=== PATIENT | female | born 1980 | race Asian ===

== ENCOUNTER → 2018-10-26 | Outpatient (CLI) | payer MEDICAID | LOC: FIMAGING 13:23 | PROVIDERS: ATTEND Obstetrics & Gynecology | DX: O09.521 Supervision of elderly multigravida, first trimester (principal); O34.219 Maternal care for unspecified type scar from previous cesarean delivery; Z3A.13 13 weeks gestation of pregnancy ==

== ENCOUNTER → 2018-12-12 | Outpatient (CLI) | payer MEDICAID | LOC: FIMAGING 07:15 | PROVIDERS: ATTEND Obstetrics & Gynecology | DX: O09.523 Supervision of elderly multigravida, third trimester (principal); O34.219 Maternal care for unspecified type scar from previous cesarean delivery; Z3A.20 20 weeks gestation of pregnancy ==

== ENCOUNTER 2019-01-24 17:29 | Emergency (ER) | payer MEDICAID ==
--- NOTE | 2019-01-24 18:56 | EDPHY ---
General Time Seen by Provider: 01/24/19 18:07 Narrative: CLINICAL IMPRESSION: Avulsion laceration, distal lateral aspect of left 2nd finger. ASSESSMENT/PLAN: Very pleasant 38-year-old female presents to the emergency department with an avulsion laceration to the distal medial tip of the left 2nd finger sustained on a kitchen knife. Distal 2 point discrimination and neurovascular exam intact. Tetanus up-to-date. Digital block placed and wound was thoroughly cleaned. Due to persistent bleeding, Surgicel and a pressure dressing were applied. Home care discussed, PCP follow-up recommended, warning signs return to ED sooner alignment discharge. DIFFERENTIAL DIAGNOSIS: includes but not limited to laceration of tendon or vascular structure, underlying fracture, laceration with retained FB ED PROCEDURES: Laceration Repair Verbal consent obtained by patient. Risks discussed, including but not limited to infection, pain, retained foreign body, need for additional repair, poor cosmetic result, tendon damage, nerve damage, poor wound healing, vascular damage. Alternatives to repair discussed. Franklin protocol used to establish correct patient, procedure, equipment, bioinformatics support specialist, and site. Anesthesia obtained by nerve block at left 2nd DIP joint. Anesthetized with 0.5% bupivacaine without epinephrine. Laceration location left 2nd finger, length 0.5 cm, depth consistent with avulsion laceration, Repair type simple. Patient was prepped and draped in usual sterile fashion. Hemostasis achieved with direct pressure. Wound explored through full range of motion and entire depth of wound probed and visualized with gloved finger. No suspicion for nerve damage, tendon damage, underlying fracture, vascular damage, foreign body, or contamination. Area was cleansed with Shur-Clens and irrigated with sterile saline as per protocol. No foreign body or material removed. Repair method Surgicel and pressure dressing. Patient tolerated well with no immediate complications. Wound care: Clean and dry x 24 hours, gently clean with soap and water, cover with topical antibiotic ointment/bandage. CHIEF COMPLAINT: Laceration HPI: Pleasant left-hand dominant 38-year-old female presents to the emergency department with an avulsion laceration to the distal tip of the left 2nd finger sustained on a kitchen knife. Patient states she had come to the ED because bleeding persisted. She is currently 26 weeks with her 3rd child. Tetanus is up-to-date. No reports of numbness to the finger. No other injuries. PAST MEDICAL HISTORY: Currently , 26 weeks Pertinent Past Surgical History: None reported Social History: Otherwise healthy, left-hand dominant REVIEW OF SYSTEMS: All other systems negative Constitutional: No fever, no chills Musculoskeletal: No deformity, no joint pain Skin: Laceration left 2nd finger Neurological: [No sensory loss or weakness PHYSICAL EXAM: General Appearance: Alert, oriented, appropriate for age, cooperative, , NAD, well hydrated, non-toxic appearing, VSS, no hypoxia. Neurological: Alert and oriented x 3 Skin: Avulsion laceration to the medial distal aspect of the left 2nd finger. No nail bed involvement. No foreign body. No deep structure injury. Musculoskeletal: Distal 2 point discrimination and neurovascular exam intact. MEDICAL DECISION MAKING: Patient was seen independently. Secondary supervising physician at time of evaluation was Dr. Masrh . Diagnosis: Avulsion laceration left 2nd finger. New, requires workup Summary: See assessment and plan for summary of ED visit Patient Progress improved, stable for discharge. - History Smoking Status: Never smoked - Objective Vital Signs: Initial Vital Signs Temperature (C) 37.1 C 01/24/19 17:51 Heart Rate 88 01/24/19 17:51 Respiratory Rate 16 01/24/19 17:51 Blood Pressure 108/81 H 01/24/19 17:51 O2 Sat (%) 98 01/24/19 17:51 O2 Delivery Mode Room Air Allergies/Adverse Reactions: No Known Allergies Allergy (Unverified 01/24/19 17:51) Home Medications: Medication Instructions Recorded NK [No Known Home Meds] 01/24/19 Departure - Departure Disposition: Home, Routine, Self-Care Clinical Impression: Finger laceration Qualifiers: Encounter type: initial encounter Finger: index finger Damage to nail status: without damage Foreign body presence: without foreign body Laterality: left Qualified Code(s): S61.211A - Laceration without foreign body of left index finger without damage to nail, initial encounter Condition: Good Instructions: Finger Laceration (ED) Additional Instructions: DISCHARGE INSTRUCTIONS FROM YOUR DOCTOR Thank you for visiting our emergency department today. You were treated by a physician residential real estate assistant today and your case was reviewed with our ED Attending physician. Please keep in mind that discharge from the emergency department does not mean that there is nothing wrong - it simply means that we have not identified an emergency condition that requires further evaluation or treatment in the hospital. You should always plan to follow up with primary care for re- evaluation of your condition in the next 2-3 days. If you have been referred to a specialist, please call as soon as possible (today or tomorrow) to schedule your follow up appointment at the appropriate time. KEEP THE DRESSING ON HER FINGER FOR 24 HR. CHANGE THE BAND-AID TOMORROW NIGHT. ELEVATE THE HAND. RETURN TO THE EMERGENCY DEPARTMENT FOR PERSISTENT BLEEDING, REDNESS, SWELLING, DISCHARGE OR CONCERNS OF INFECTION OR ANY OTHER CONCERN. People present with illnesses and injuries in different ways, and it is always possible that we have missed something. You may always return for re-evaluation if symptoms worsen or if they are not improving or if you develop new/different symptoms. Again, thank you for choosing our emergency department. We hope that you feel better. Referrals: NONE *PRIMARY CARE P,. [Primary Care Provider] - As per Instructions Mendoza Jain MD [Medical Doctor] - 2-3 days, if not improved
[2019-01-24 19:07] VITALS: BP 123/90
== END 2019-01-24 19:07 | disposition home or self-care (01) ==
PROC: 0HQGXZZ Repair Left Hand Skin, External Approach (ICD-10-PCS; principal; 2019-01-24)
DX: S61.211A Laceration without foreign body of left index finger without damage to nail, initial encounter (principal); W26.0XXA Contact with knife, initial encounter

== ENCOUNTER 2019-02-22 08:36 | Inpatient (IN) | payer MEDICAID ==
[2019-02-22] MEDS ORDERED: IBUPROFEN 600 MG TAB PO PRN (09:05)
[2019-02-22] MEDS ORDERED: LIDOCAINE 1% 300 MG/30 ML SDV SC PRN (09:05)
[2019-02-22] MEDS ORDERED: OLIVE OIL 118 ML BTL MISC PRN (09:05)
[2019-02-22] MEDS ORDERED: LR 1,000 ML IV PRN (09:05)
[2019-02-22] MEDS ORDERED: EPSOM SALT 454 GM TP PRN (09:05)
[2019-02-22] MEDS ORDERED: MISOPROSTOL 200 MCG TAB PR PRN (09:05)
[2019-02-22] MEDS ORDERED: OXYTOCIN/RINGERS LACTATE 1,000 ML IV PRN (09:05)
[2019-02-22] MEDS ORDERED: BETAMETHASONE IM SYRINGE IM ONE ×2 (09:08→09:30)
[2019-02-22] MEDS ORDERED: MAGNESIUM SULF 4 GM/WATER 100 ML IV ONE (09:19)
[2019-02-22] MEDS ORDERED: CALCIUM GLUC 10% 1 GM/10 ML VIAL IVP PRN (09:19)
[2019-02-22 09:25] LABS: PLATELET COUNT 205 10^3/uL (150-400)
[2019-02-22] MEDS ORDERED: Mag Sulf 500 ML IV SCH (09:30)
[2019-02-22] MEDS ORDERED: ACETAMINOPHEN 500 MG TAB PO ONE (11:13)
--- NOTE | 2019-02-22 11:40 | GHP ---
[f rep st] PREOP HISTORY AND PHYSICAL DATE OF ADMISSION: 02/22/2019 ADMISSION DIAGNOSES: 1. Intrauterine at 30 and 3/7 weeks gestation. 2. Thirty and 3/7 weeks gestation. 3. History of section x2. labor. HISTORY OF PRESENT ILLNESS: The patient is a 38-year-old 3, para 2-0-0-2 who is 30 and 3/7 w eeks gestation presented to Labor and Delivery with complaint of vaginal bleeding and cramping. The patient's estimated date of confinement is 04/30/2019, dated by last menstrual period of 07/24/2018, consistent with a 12 week ultrasound. Patient initiated care at [facility] at 12 weeks gestation and has had regular care. This is an unplanned and patient kisha carnesy had some anxiety around the . She had her 1st trimester ultrasound and anatomy ultrasou nd with high-risk doctors, which were reassuring. Patient began having cramping and bleeding this mo rning at 1 o'clock in the morning. She arrived to labor and delivery this morning with complaint of vaginal bleeding. The status was reassuring. A bedside ultrasound was performed which showed a large amount of fluid in the lower uterine segment versus vagina and baby in a transverse and varia ble presentation. A speculum exam was performed in her cervix. There was a small amount of blood wi thin the vagina but no active bleeding. Her cervix appeared to be closed. A gentle digital exam was performed which showed the cervix to be fingertip and approximately 90-100 percent effaced. Transva ginal ultrasound was performed which showed a cervical length of 0.65 cm. The patient is overall com fortable and feeling good movement. She denies any loss of fluid. The patient was given betamethaso ne and started on magnesium sulfate for neuro protection and I used an stna for the exam and c onversation and the nurse practitioner came and talked with the patient about management of baby. MEDICAL HISTORY: The patient's medical history is significant for anxiety and some depres lori. MEDICATIONS: vitamins and iron. SURGICAL HISTORY: section x2. ALLERGIES: No known drug allergies. SOCIAL HISTORY: Patient is . 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 She denies tobacco, alcohol, or drug use. FAMILY MEDICAL HISTORY: Noncontributory. 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 Periods every 28 days, lasting 5 days. She is a 3, para 2 -0-0-2. In 2010, she had a primary low transverse section for not enough strength for a vag inal delivery in [facility]. Baby was 2.9 kg at 37 weeks gestation. In 2016, she had a repeat cesarea n section at 37 weeks gestation of a 2.9 kg male infant. Current has been unremarkable wit h the exception of this most recent labor. The patient denies any history of any abnormal Pa p smears or sexually transmitted diseases. REVIEW OF SYSTEMS: 10-point review of systems is negative with the exception of the above-mentioned positives. She denies any headache or changes in vision. She is having intermittent contractions an d a small amount of vaginal bleeding. She denies any loss of fluid. There is good movement. PHYSICAL EXAMINATION: VITAL SIGNS: Stable. GENERAL APPEARANCE: Alert and oriented x3. MUSCULOSKE LETAL: Grossly intact. NEURO: Grossly intact. PSYCH: Appropriate affect. HEART: Regular. LUNG S: Clear to auscultation bilaterally. ABDOMEN: Gravid, nondistended, nontender. EXTREMITIES: Rev eal no calf tenderness or edema. PELVIC: Cervical exam was fingertip and 90% effaced. is in a variable presentation, but not cephalic. There is adequate amniotic fluid. She is having occasio nal contractions. status is appropriate for gestational age. LABS: Blood type A positive, antibody screen negative. Rubella immune. GBS is pending. H BsAg negative. HIV negative. Her 50 g glucose was 126. ASSESSMENT AND PLAN: A 38-year-old 3, para 2-0-0-2, who is 30 and 3/7 weeks gestation here w ith contractions and vaginal bleeding. status remains reassuring. She has been given betamethasone and started on magnesium sulfate. We will proceed with section if statu s becomes reassuring, if there is spontaneous rupture of membranes or vaginal bleeding increases sign ificantly or if patient progresses into labor. /[id number]/MODL
--- NOTE | 2019-02-22 14:15 | OBPROG ---
Labor Progress Note Assessment/Plan: Assessment: Plan: Subjective/Intrapartum Course: 02/22/19 14:13 patient resting comfortably on magnesium. Magnesium is making her tired. no further bleeding. no loss of fluid. status reassuring. beside ultrasound - still variable presentation. reviewed case with MFM (Dr Fountain) . discussed nifedipine or indocin for 48 hours after magnesium to extend time after betamethasone. if not delivered by tuesday will have a growth ultrasound. with patient. will place mcduffie. questions answered. Objective: 02/22/19 09:15 Patient ABO/Rh A POSITIVE 02/22/19 09:15 - Contraction Pattern Assessment Current Contraction Pattern: Irregular - FHR Assessment Beatty FHR Pattern Variability: Moderate FHR Category: 1 Oxytocin Orders Assessment - Pre-Induction/Augmentation Assessment Gestational Age: 30 week(s) and 3 day(s)
[2019-02-22] MEDS ORDERED: INDOMETHACIN 25 MG CAP PO ONE ×2 (14:18→15:46)
[2019-02-22] MEDS ORDERED: ceFAZolin 2 GM/DEXTROSE 100 ML IV ONE (16:13)
[2019-02-22] MEDS ORDERED: BUPIVACAINE/DEXTROSE 7.5MG/ML 2 ML SPINAL AMP SP ONE (16:21)
[2019-02-22] MEDS ORDERED: morphINE PF 5 MG/10 ML INJ ONE (16:24)
--- NOTE | 2019-02-22 16:32 | PDANEPAE ---
ANE History of Present Illness 30 weeks in labor prior X 2 for repeat ANE Past Medical History - Cardiovascular History Hx Hypertension: No Hx Arrhythmias: No - Pulmonary History Hx Asthma/Reactive Airway Disease: No Hx Oxygen in Use at Home: No Hx Sleep Apnea: No Sleep Apnea Screening Result - Last Documented: Negative - Endocrine History Hx Diabetes: No ANE Review of Systems Review of Systems: ANE Patient History - Allergies Allergies/Adverse Reactions: No Known Allergies Allergy (Unverified 01/24/19 17:51) - Home Medications Home medications: home medication list seen and reviewed Home Medications: NK [No Known Home Meds] 01/24/19 [Last Taken Unknown] - NPO status NPO Since - Liquids (Date): 02/22/19 NPO Since - Liquids (Time): 07:00 NPO Since - Solids (Date): 02/21/19 NPO Since - Solids (Time): 09:00 - Anes Hx Anes Hx: no prior problems (prior spinal and GA without diff) - Smoking Hx Smoking Status: Never smoked ANE Labs/Vital Signs - Labs Result Diagrams: 02/22/19 09:15 - Vital Signs Blood Pressure: 110/68 Heart Rate: 90 Respiratory Rate: 14 Height: 154.94 cm Weight: 62.596 kg ANE Physical Exam - Airway Mallampati Score: Class 2 Mouth exam: normal dental/mouth exam - Pulmonary Pulmonary: no respiratory distress - Cardiovascular Cardiovascular: regular rate and rhythym - ASA Status ASA Status: II, E ANE Anesthesia Plan Anesthesia Plan: spinal
--- NOTE | 2019-02-22 16:35 | OBPROG ---
Labor Progress Note Assessment/Plan: Assessment: Plan: Subjective/Intrapartum Course: 02/22/19 14:13 patient resting comfortably on magnesium. Magnesium is making her tired. no further bleeding. no loss of fluid. status reassuring. beside ultrasound - still variable presentation. reviewed case with MFM (Dr Fountain) . discussed nifedipine or indocin for 48 hours after magnesium to extend time after betamethasone. if not delivered by tuesday will have a growth ultrasound. with patient. will place mcduffie. questions answered. 02/22/19 16:32 patient breathing through contractions and wincing with pain. sve 4 cm with bulging bag of water. bedside ultrasound done. head in lower uterus on left side. spine up and hands as presenting part. anesthesia notified. will proceed with repeat c section. patient consented with video third rigger. brifely discussed tubal ligation. patient had previously said was considering. 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 will discussed family planning options post Objective: 02/22/19 09:15 Patient ABO/Rh A POSITIVE 02/22/19 09:15 Temp Pulse Resp BP Pulse Ox 36.3 C 90 14 110/68 02/22/19 16:09 02/22/19 16:09 02/22/19 16:09 02/22/19 16:09 - SVE Dilation (cm): 4 Effacement (%): 100 Membranes: Intact - Contraction Pattern Assessment Current Contraction Pattern: Irregular - FHR Assessment Beatty FHR Pattern Variability: Moderate (hx prior c section x 2 in [place]. dated by first trimester ultrasound equal to lmp. negative first trimeter and anatomy ultrasoun with MFM. posterior placenta. contractions began at 1 am. arrived with bleeding and contractions. ) FHR Category: 1 Oxytocin Orders Assessment - Pre-Induction/Augmentation Assessment Gestational Age: 30 week(s) and 3 day(s)
[2019-02-22] MEDS ORDERED: PHENYLEPHRINE HCL 100 MCG/ML SYR ONE (17:30)
[2019-02-22] MEDS ORDERED: NITROGLYCERIN 50 MG/10 ML SDV IV ONE (17:49)
[2019-02-22] MEDS ORDERED: ONDANSETRON 4 MG/2 ML VIAL IVP PRN (17:54)
[2019-02-22] MEDS ORDERED: NALOXONE HCL 0.4 MG/ML INJ IVP PRN ×2 (17:54→17:58)
[2019-02-22] MEDS ORDERED: fentaNYL 100 MCG/2 ML INJ IVP PRN (17:54)
[2019-02-22] MEDS ORDERED: OXYTOCIN 100 UNITS/10 ML VIAL ONE (17:57)
[2019-02-22] MEDS ORDERED: ONDANSETRON 4 MG/2 ML VIAL ONE (17:57)
--- NOTE | 2019-02-22 18:18 | POSTANESTH ---
Post Anesthetic Evaluation Cardiovascular Status: Similar to Pre-Op Cond Respiratory Status: Similar to Pre-op Cond. Level of Consciousness/Mental Status: Alert and Oriented Pain Control: Adequate, Prn Tx Ordered Nausea/Vomiting Control: Adequate, Prn Tx Ordered Complications Possibly Related to Anesthesia: None Noted
--- NOTE | 2019-02-22 18:29 | OBDEL ---
Info Type: Repeat Presentation at Delivery: Transverse Lie L&D Analgesia/Anesthesia Type: Spinal GBS+: No (unknown) Intrapartum Medications: Discontinued Medications Generic Name Dose Route Start Last Admin Trade Name Sandi PRN Reason Stop Dose Admin Acetaminophen 1,000 mg 02/22/19 11:13 02/22/19 12:07 Tylenol PO 02/22/19 11:14 1,000 mg ONCE ONE Administration Betamethasone Acet/Betameth SodPhos 12 mg 02/22/19 09:30 02/22/19 09:49 Celestone Im Syringe IM 02/22/19 09:31 12 mg ONCE ONE Administration Magnesium Sulfate 100 mls @ 200 mls/hr 02/22/19 09:19 02/22/19 09:41 Magnesium Sulf 4 Gm (Premix) IV 02/22/19 09:48 100 mls ONCE ONE Administration Protocol Magnesium Sulfate 500 mls @ 25 mls/hr 02/22/19 09:30 02/22/19 11:10 Magnesium Sulfate 20 Gm/ 500 Ml (Premix) IV 02/23/19 09:29 500 mls CONT JAVIER Administration Protocol Indomethacin 100 mg 02/22/19 14:18 02/22/19 14:44 Indocin PO 02/22/19 14:19 100 mg ONCE ONE Administration - Care Provider Supervisor [employer]/HEDGE TRIMMER: Obi Sandhu - Hospital Course Intrapartum: 02/22/19 14:13 patient resting comfortably on magnesium. Magnesium is making her tired. no further bleeding. no loss of fluid. status reassuring. beside ultrasound - still variable presentation. reviewed case with MFM (Dr Fountain) . discussed nifedipine or indocin for 48 hours after magnesium to extend time after betamethasone. if not delivered by tuesday will have a growth ultrasound. with patient. will place mcduffie. questions answered. 02/22/19 16:32 patient breathing through contractions and wincing with pain. sve 4 cm with bulging bag of water. bedside ultrasound done. head in lower uterus on left side. spine up and hands as presenting part. anesthesia notified. will proceed with repeat c section. patient consented with video server service assistant. brifely discussed tubal ligation. patient had previously said was considering. 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 will discussed family planning options post Indications for Delivery: Spontaneous Labor ( labor, history of prior section) Vaginal Delivery - Labor and Delivery Cord Gases: Cord Gases Cord Blood PCO2 51.0 mmHg (37-60) 02/22/19 17:20 Cord Base Excess -5.6 mEq/L (-13.6--3.2) 02/22/19 17:20 Cord ABG pH 7.25 (7.10-7.37) 02/22/19 17:20 Cord VBG pH TNP 02/22/19 17:20 Operative Report - Delivery Pre-op Diagnoses: IUp 30 3/7 weeks, history of prior section x 2, labor, transverse spine up lie Post-op Diagnoses: same as preop plus entrapment necessitating t'ing of uterine incision History of Prior Section: Yes Number of Prior Sections: 2 Indications for Prior Section: Other (Specify) ("mother not strong enough to push" done in [place]. repeat c section done in [place]) Indications for Current Section: Other (Specify) (labor) Procedure: Unscheduled, Low Transverse, Vertical (t incision) Surgeon: Meri Rader Skinner Pelts: Cleopatra Grant Anesthesiologist: Sajan Roldan Complications: Other (Specify) ( entrapment necessitating t'ing of the uterus) Specimen(s)/Path: Placenta EBL: 500 Cord Gases: Cord Gases Cord Blood PCO2 51.0 mmHg (37-60) 02/22/19 17:20 Cord Base Excess -5.6 mEq/L (-13.6--3.2) 02/22/19 17:20 Cord ABG pH 7.25 (7.10-7.37) 02/22/19 17:20 Cord VBG pH TNP 02/22/19 17:20 [place] Data RAVINDER: 04/30/19 Gestational Age: 30 week(s) and 3 day(s) Beatty Delivery Date: 02/22/19 Delivery Time: 17: Sex of : Male Score (1 Min): 4 Score (5 Min): 8 ICD10 Worksheet Patient Problems: Problems Problem Status Onset History of Acute labor Acute
[2019-02-22] MEDS ORDERED: BISACODYL 10 MG SUPP PR PRN (18:33)
[2019-02-22] MEDS ORDERED: MAGNESIUM HYDROXIDE 30 ML UDCUP PO PRN (18:33)
[2019-02-22] MEDS ORDERED: LACTULOSE 20 GM/30 ML UDCUP PO PRN (18:33)
[2019-02-22] MEDS ORDERED: PROMETHAZINE HCL 25 MG/ML INJ IVP PRN (18:33)
[2019-02-22] MEDS ORDERED: SIMETHICONE 80 MG TAB CHEW PO PRN (18:33)
[2019-02-22] MEDS ORDERED: POLYETHYLENE GLYCOL 3350 17 GM PKT PO PRN (18:33)
[2019-02-22] MEDS: KETOROLAC 30 MG/1 ML SDV IVP SCH (19:31)
[2019-02-22] MEDS: ACETAMINOPHEN 325 MG TAB PO SCH (19:58)
[2019-02-22] MEDS ORDERED: INDOMETHACIN 25 MG CAP PO SCH (21:45)
[2019-02-22] MEDS: SENNOSIDES/DOCUSATE SODIUM TAB PO SCH (21:55)
--- NOTE | 2019-02-22 22:47 | GOP ---
[f rep st] OPERATIVE REPORT DATE OF OPERATION: 02/22/2019 SURGEON: Meri Rader DO SEO TEAM LEAD: Cleopatra Grant MD. ANESTHESIA: Spinal with Duramorph. ANESTHESIOLOGIST: Dr. Roldan. PREOPERATIVE DIAGNOSIS: 1. Intrauterine at 30-3/7 weeks gestation. 2. History of previous section x2. 3. labor with cervical dilation. 4. malpresentation. POSTOPERATIVE DIAGNOSIS: 1. Intrauterine at 30-3/7 weeks gestation. 2. History of previous section x2. 3. labor with cervical dilation. 4. malpresentation. 5. Plus entrapment necessitating T excision of the uterus. PROCEDURE PERFORMED: FINDINGS: 1. Viable male infant in the transverse spine-up presentation delivered at 5:19 p.m. 2. Intact placenta with 3-vessel cord. 3. Normal ovaries, uterus and tubes. Very thin lower uterine segment where previous hysterotomy. SPECIMENS: Placenta, cord gases. ESTIMATED BLOOD LOSS: 500 cc. INDICATIONS: Patient is a 38-year-old, 3, para 2-0-0-2, who is 30-3/7 weeks gestation. She has a history of previous low transverse section x2. She began having contractions and blee ding this morning. She arrived to Labor and Delivery and an exam was done. There was a small amount of blood in her vagina but no active bleeding was noted. A bedside ultrasound was done which showed a very dilated lower uterine segment and malpresentation. The patient was examined and her ce rvix was fingertip and 90% effaced. She was given betamethasone and started on magnesium sulfate for neuro protection. The plan was to continue close observation and patient began having contractions increasing in frequency and intensity. She was given Indocin and continued having contractions. She was wincing with the pain, so she was examined and found to be 4 cm dilated, 100% effaced. Decision was made to proceed with a repeat low transverse section. Risks and benefits were reviewed with the patient. The patient was properly consented. DESCRIPTION OF PROCEDURE: Patient was taken to the operating room with intravenous fluids in place. She was given 2 g of Ancef, and she was placed one the operating room table where spinal anesthesia was obtained. She was then repositioned into the dorsal supine position with a leftward tilt. A Fol ey catheter was already in place, and Venodynes were placed on her lower extremities. She was then p repped and draped in the normal sterile fashion. Anesthesia was assessed and found to be adequate. A Pfannenstiel skin incision was then made 2 fingerbreadths above the pubic symphysis along the previ ous -section scar. The scar was then excised. The incision and then carried through to the underlying layer of fascia with the Bovie. The fascia was then nicked in the midline and the fascial incision was extended laterally. The superior aspect of the fascial incision was grasped with Shahbaz r, tented up and the underlying rectus muscle dissected off bluntly and with the Bovie. Attention wa s then turned to the inferior aspect of the fascial incision which was then grasped with Isaura, tent ed up and the underlying rectus muscle dissected off bluntly with the Bovie. The rectus muscle was t hen in the midline. The peritoneum was identified, tented up, and entered sharply with the Metzenbaum scissors. The incision was extended superiorly and inferiorly with excellent visualizati on of the bladder. The bladder blade was then inserted. The lower uterine segment was noted to be v sandoval thin and internal exam was performed, and the infant was still felt to be in the transverse spine -up position. Attempt was made to gaetano the baby to the cephalic presentation, but this was not succ essful. The Russians and Metzenbaum scissors were then used to tent up the vesicouterine peritoneum and entered sharply with the Metzenbaum scissors. The incision was extended laterally and a bladder flap was created digitally. The bladder blade was then reinserted. The bladder was then dissected o ff the lower uterine segment. Again, the lower uterine segment was noted to be very thin. The uteru s was then incised in low transverse fashion with a scalpel and the uterine incision was extended lat erally. Again, we attempted to try to gaetano the baby to the cephalic presentation, but it was not ab le to be done, so the membranes were artificially ruptured. I attempted to grasp the 's head, however, would not be rotated down, and the infant's right foot was protruding through the incision. We attempted to grab the baby's feet and deliver it by breech. However, the left foot was difficult to access because the uterus was so contracted down. Anesthesia was in the process of getting nitro glycerin when I decided to T the uterus and was then able to grasp both feet, wrapped them in a moist laparotomy sponge and deliver the feet and buttocks. The arms were then rotated and the head was th en delivered without difficulty. Delayed cord clamping for 15 seconds was done. However, because ba by was from the delivery cord was clamped x2 and cut with a long segment of the cord, and the was handed off to the waiting counselor/art therapist. Cord gases were obtained. Cord blood was the n obtained. Intact placenta with 3-vessel cord was then delivered without difficulty. The uterus wa s then exteriorized and cleared of all clots and debris and wrapped in a moist laparotomy sponge. Ov claritza, uterus and tubes were unremarkable. The vertical extension of the hysterotomy was then closed in 3 layers with a running 0 suture and 0 locked suture was then used in a running locked fashion to close the low transverse incision. Hemostasis was assured. The gutters were cleared of all clots a nd debris. The uterus was then returned to the patient's abdomen. The hysterotomy in the lower uter ine segment remained hemostatic. The peritoneum was reapproximated with 3-0 Vicryl in a running fash ion. Rectus muscles naturally reapproximated so there was no suture placed. The fascia was closed w ith 0 Vicryl in a running fashion. The subcutaneous tissue was noted to be scarred down from her pre vious sections, so this was released, and Heather's tissue was reapproximated with 3-0 Vicryl in a running fashion. Subcuticular tissue was reclosed with 3-0 Vicryl in a running subcuticular fa shion. Sponge, lap, and needle count were correct x2. The patient was transferred to the recovery r o in stable condition. LABORATORY DATA: PCO2 was 51, and base excess was -5.6. ABG was 7.25 pH. /[id number]/MODL
[2019-02-23] MEDS: ACETAMINOPHEN 325 MG TAB PO SCH ×4 (01:45→20:02)
[2019-02-23] MEDS: KETOROLAC 30 MG/1 ML SDV IVP SCH ×3 (01:46→13:43)
[2019-02-23] MEDS: SENNOSIDES/DOCUSATE SODIUM TAB PO SCH ×2 (08:00→19:52)
--- NOTE | 2019-02-23 11:59 | OBPP ---
Progress Note Assessment/Plan: Assessment: 38 y/o POD #1 s/p Repeat c section with "T" incision secondary to PTL, transverse presentation. Plan: Transition to po pain meds today. Ambulate with assistance and RN will remove bandage and pt may shower later this afternoon. Abdominal binder. Will appreciate anesthesia's input about her KOROMA which worsens when she is upright. Perhaps spinal in nature? support around pumping and routine POC. 02/23/19 11:59 Subjective/ Course: 02/23/19 11:55 Pt is doing well this am. She has ambulated and voided without difficulty. Has min lochia and is tolerating reg diet. She reports feeling dizzy and a headache when is getting up to walk. She is drinking fluids and we encouraged even more hydration. She has started pumping and baby is stable in the NICU on CPAP. Objective: 02/23/19 05:20 Patient ABO/Rh A POSITIVE 02/22/19 09:15 Group B Strep DNA NEGATIVE (NEGATIVE) 02/21/19 09:30 Temp Pulse Resp BP Pulse Ox 36.2 C 61 16 87/55 L 95 02/23/19 08:00 02/23/19 08:00 02/23/19 08:00 02/23/19 08:00 02/23/19 10:00 Uterine Position/Fundal Height: Umbilicus -2 Uterine Tone: Firm Physical Exam - Physical Exam General Appearance: alert, no apparent distress Neck: non-tender, full range of motion, supple Respiratory: chest non-tender, lungs clear, normal breath sounds Cardiac/Chest: regular rate, rhythm Abdomen: normal bowel sounds, dressing (c/d/i) Extremities: swelling (no), Marcelle's sign (neg)
[2019-02-23] MEDS ORDERED: NS 500 ML IV ONE (13:23)
--- NOTE | 2019-02-23 13:27 | SOAPPROG ---
SOAP Progress Note Assessment/Plan: Assessment: Plan: Subjective: Pt w c/o of KOROMA s/p Csx w/ SAB 27 g zack needle KOROMA is positional, but improving during the day PDPHA, discussed conservative Tx vs Blood patch, pt prefers conservative Tx 500 CC NS bolus then re eval Objective: Vital Signs Temp Pulse Resp BP Pulse Ox 36.2 C 74 15 97/67 L 96 02/23/19 08:00 02/23/19 12:52 02/23/19 12:52 02/23/19 12:52 02/23/19 12:52 Laboratory Results 02/23/19 05:20 02/22/19 02/23/19 02/24/19 05:59 05:59 05:59 Intake Total 1695 200 Output Total 5170 800 Balance 1025 50 ICD10 Worksheet Patient Problems: Problems Problem Status Onset History of Acute labor Acute
--- NOTE | 2019-02-23 13:38 | PDPAINCON ---
Pain Management Consultation Patient referred by : Fantasma - Subjective Pain is: under control Side effects include: No itchiness, No nausea Activity: able to ambulate - Objective Technique: spinal opioid Sensory and motor exam: consistent with block Vital signs: stable - Assessment/Plan Additional comments: POD 1 s/p IT morphine complaining of positional headache consistent with PDPH with 27G zack needle. This has been improving throughout the course of the day. Patient prefers conservative therapy with IV fluids. Encourage aggressive hydration, caffeine. Discussed blood patch but will defer at this time. APS will follow up tomorrow.
[2019-02-23] MEDS: FERRO-SEQUELS 65 MG TAB.ER PO SCH (13:43)
[2019-02-23] MEDS: IBUPROFEN 600 MG TAB PO SCH (19:53)
[2019-02-24] MEDS: ACETAMINOPHEN 325 MG TAB PO SCH ×4 (02:15→20:08)
[2019-02-24] MEDS: IBUPROFEN 600 MG TAB PO SCH ×4 (02:15→20:07)
[2019-02-24] MEDS: FERRO-SEQUELS 65 MG TAB.ER PO SCH (08:11)
[2019-02-24] MEDS: SENNOSIDES/DOCUSATE SODIUM TAB PO SCH ×2 (08:11→20:07)
--- NOTE | 2019-02-24 09:38 | OBPP ---
Progress Note Assessment/Plan: Assessment: 1) 38 y/o s/p RCS with "T" incision secondary to PTL, transverse presentation POD #2 -pt is stable 2) Anemia - pt is asymptomatic 3) Dysuria Plan: Continue routine post-op care Encourage ambulation to help wit Will check UA and cx if indicated Plan for d/c home in 48 hours 02/24/19 09:42 Subjective/ Course: 02/23/19 11:55 Pt is doing well this am. She has ambulated and voided without difficulty. Has min lochia and is tolerating reg diet. She reports feeling dizzy and a headache when is getting up to walk. She is drinking fluids and we encouraged even more hydration. She has started pumping and baby is stable in the NICU on CPAP. 02/24/19 09:39 Pt seen and examined. She is pumping. Feeling well, but has some pain near her incision. Pain 2/10-relief with Motrin and Tylenol. Pt is OOB, dmitry regular diet , voiding, but notes some burning this am and had a BM x 1. Mild lochia. Denies any f/c/n/v/CP or SOB. Baby boy is in NICU on CPAP. Objective: 02/23/19 05:20 Patient ABO/Rh A POSITIVE 02/22/19 09:15 Group B Strep DNA NEGATIVE (NEGATIVE) 02/21/19 09:30 Temp Pulse Resp BP Pulse Ox 36.2 C 71 14 95/61 L 96 02/24/19 08:07 02/24/19 08:07 02/24/19 08:07 02/24/19 08:07 02/24/19 08:07 Uterine Position/Fundal Height: Umbilicus -2 Uterine Tone: Firm Physical Exam - Physical Exam General Appearance: WD/WN, alert, no apparent distress Respiratory: lungs clear, normal breath sounds Cardiac/Chest: regular rate, rhythm Abdomen: normal bowel sounds, non-tender (some tenderness near incision), soft, flatus, incision (C/D/I; well approximated) Extremities: non-tender, normal inspection Skin: normal color, warm/dry Neuro/Psych: alert, normal mood/affect, oriented x 3
[2019-02-24] MEDS: oxyCODONE IR 5 MG TAB PO PRN (10:34)
--- NOTE | 2019-02-24 17:42 | PDPAINCON ---
Pain Management Consultation - Subjective Pain is: under control Side effects include: No drowsy, No itchiness, No nausea Activity: able to ambulate - Objective Technique: spinal opioid Catheter site: clean, dry, intact, no erythema/edema/exudate - Assessment/Plan Assessment/Plan: pain well-controlled, continue current mgmt Additional comments: Postural KOROMA continues to impprove. Prefers conservative therapy- fluids, caffeine. Will sign off please don't hesitate to call with further questions or concerns.
[2019-02-25] MEDS: IBUPROFEN 600 MG TAB PO SCH ×4 (01:58→20:07)
[2019-02-25] MEDS: ACETAMINOPHEN 325 MG TAB PO SCH ×4 (02:02→20:07)
[2019-02-25] MEDS: FERRO-SEQUELS 65 MG TAB.ER PO SCH (08:27)
[2019-02-25] MEDS: SENNOSIDES/DOCUSATE SODIUM TAB PO SCH (12:08)
--- NOTE | 2019-02-25 12:21 | OBPP ---
Progress Note Assessment/Plan: Assessment: 38 y/o POD #3 s/p Repeat c section with "T" incision Plan: Unisom for sleep tonight. Social work to see today. Will d/c to [facility] tomorrow with Rx Ibuprofen and Oxycodone. Continue to pump and store milk for baby. Routine POC. 02/23/19 11:59 02/25/19 12:21 Subjective/ Course: 02/23/19 11:55 Pt is doing well this am. She has ambulated and voided without difficulty. Has min lochia and is tolerating reg diet. She reports feeling dizzy and a headache when is getting up to walk. She is drinking fluids and we encouraged even more hydration. She has started pumping and baby is stable in the NICU on CPAP. 02/24/19 09:39 Pt seen and examined. She is pumping. Feeling well, but has some pain near her incision. Pain 2/10-relief with Motrin and Tylenol. Pt is OOB, dmitry regular diet , voiding, but notes some burning this am and had a BM x 1. Mild lochia. Denies any f/c/n/v/CP or SOB. Baby boy is in NICU on CPAP. 02/25/19 12:13 Pt is doing better today. She says her KOROMA has resolved. Her incisional pain is controlled with PO meds and she is ambulating, voiding and had a nml BM. She is using her abdominal binder which helps as well. She is tearful after discussing the NICU course with Dr. Sandhu and is having difficulty sleeping due to stress and the alarms for the baby. I offered and she would like to try Unisom. We are also having Social Work come to discuss social support and options for their fpc NICU stay. Objective: 02/23/19 05:20 Patient ABO/Rh A POSITIVE 02/22/19 09:15 Group B Strep DNA NEGATIVE (NEGATIVE) 02/21/19 09:30 Temp Pulse Resp BP Pulse Ox 36.8 C 68 12 124/82 H 98 02/25/19 08:00 02/25/19 08:00 02/25/19 08:00 02/25/19 08:00 02/25/19 08:00 Uterine Position/Fundal Height: Umbilicus -2 Uterine Tone: Firm Physical Exam - Physical Exam General Appearance: alert, no apparent distress Neck: non-tender, full range of motion, supple Respiratory: chest non-tender, lungs clear, normal breath sounds Cardiac/Chest: regular rate, rhythm Abdomen: normal bowel sounds, incision (c/d/i) Extremities: swelling (no), Marcelle's sign (neg)
--- NOTE | 2019-02-25 16:01 | ASMTCMCOM ---
CM Note CM Note Notes: Chart reviewed for discharge planning. Pt is a 38 year old admitted with vaginal bleeding & cramping while 30 weeks gestation. Pt is current with [facility] since 12wks gestation. Pt had her baby at 30wks. CM Attempted to meet with Pt after receiving a call from Gregorio HARVEY and Pt was not available. This CM will provide the following resources: [employer] [facility], [email or web address], , Community Program with applications, WIC Program, and [facility] family assistance program. [facility] called and Message left with Antonette Alicia (Mom/Baby). This CM will follow up with Kesha in the morning. CM available for needs. PLAN: Pt will likely discharge tomorrow but stay with Baby Date Signed: 02/25/2019 04:00 PM Electronically Signed By:Cleopatra Avila
[2019-02-25] MEDS: oxyCODONE IR 5 MG TAB PO PRN (18:46)
[2019-02-25 20:18] VITALS: BP 114/76
[2019-02-26] MEDS: SENNOSIDES/DOCUSATE SODIUM TAB PO SCH ×2 (01:08→11:07)
[2019-02-26] MEDS: ACETAMINOPHEN 325 MG TAB PO SCH ×2 (05:15→11:16)
[2019-02-26] MEDS: IBUPROFEN 600 MG TAB PO SCH ×2 (05:16→11:16)
[2019-02-26] MEDS: oxyCODONE IR 5 MG TAB PO PRN (05:21)
--- NOTE | 2019-02-26 10:31 | OBPP ---
Progress Note Assessment/Plan: Assessment: pod#4 s/p repeat c section with T of uterus for labor and malpresentation and history of c section x 2 pumping anemia on iron rh+/RI baby in NICU discharge instructions Plan: 02/26/19 10:30 02/26/19 10:32 Subjective/ Course: 02/23/19 11:55 Pt is doing well this am. She has ambulated and voided without difficulty. Has min lochia and is tolerating reg diet. She reports feeling dizzy and a headache when is getting up to walk. She is drinking fluids and we encouraged even more hydration. She has started pumping and baby is stable in the NICU on CPAP. 02/24/19 09:39 Pt seen and examined. She is pumping. Feeling well, but has some pain near her incision. Pain 2/10-relief with Motrin and Tylenol. Pt is OOB, dmitry regular diet , voiding, but notes some burning this am and had a BM x 1. Mild lochia. Denies any f/c/n/v/CP or SOB. Baby boy is in NICU on CPAP. 02/25/19 12:13 Pt is doing better today. She says her KOROMA has resolved. Her incisional pain is controlled with PO meds and she is ambulating, voiding and had a nml BM. She is using her abdominal binder which helps as well. She is tearful after discussing the NICU course with Dr. Sandhu and is having difficulty sleeping due to stress and the alarms for the baby. I offered and she would like to try Unisom. 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 02/26/19 10:32 patient is doing well overall. pain is well controlled. normal lochia. denies headache and changes in vision. ambulating. passing gas. denies headache and changes in vision. was able to get some sleep last night. discussed care with assistance of video student services dean. will facilitate getting a letter for patients mother in law to try to get visa for her to come help. mood is stable. eating. voiding without difficulty. no concerns. discussed surgery and what happened. discussed that we did not do tubal ligation because of the urgency of the situation. patient understands. will discuss further at post visit. 02/26/19 10:34 Objective: 04/26/19 05:20 Patient ABO/Rh A POSITIVE 02/22/19 09:15 Group B Strep DNA NEGATIVE (NEGATIVE) 02/21/19 09:30 Temp Pulse Resp BP Pulse Ox 36.5 C 80 16 114/76 95 02/25/19 20:00 02/25/19 20:00 02/25/19 20:00 02/25/19 20:00 02/25/19 20:00 Physical Exam - Physical Exam Neck: non-tender, full range of motion, supple Respiratory: chest non-tender, lungs clear Cardiac/Chest: normal peripheral pulses, regular rate, rhythm Abdomen: normal bowel sounds, non-tender, other (fundus firm and non tender) Extremities: normal range of motion, non-tender, normal inspection, normal capillary refill Skin: normal color, warm/dry, other (incision clean dry and intact) Neuro/Psych: no motor/sensory deficits, alert, normal mood/affect, oriented x 3
--- NOTE | 2019-02-26 10:38 | OBGCSDC ---
General Delivery Information - General Info : 3 Para: 3 Abortions: 0 Type: Repeat L&D Analgesia/Anesthesia Type: Spinal Admission Date: 02/22/19 Labs: Patient ABO/Rh A POSITIVE 02/22/19 09:15 Hct 31.7 % (38.0-47.0) L 02/23/19 05:20 Group B Strep DNA NEGATIVE (NEGATIVE) 02/21/19 09:30 - Hospital Course Antepartum: 02/26/19 10:35 history of prior c section x 2 in [place]. Initiated care at [facility] in first trimester. unplanned . began having contractions at 30 3. arrived to l and d and was given steroids and magnesium sulfate. baby transverse spine up. continued mnadeep and eventually had cervical change so proceeded with repeat c section. Intrapartum: 02/22/19 14:13 patient resting comfortably on magnesium. Magnesium is making her tired. no further bleeding. no loss of fluid. status reassuring. beside ultrasound - still variable presentation. reviewed case with MFM (Dr Fountain) . discussed nifedipine or indocin for 48 hours after magnesium to extend time after betamethasone. if not delivered by tuesday will have a growth ultrasound. with patient. will place mcduffie. questions answered. 02/22/19 16:32 patient breathing through contractions and wincing with pain. sve 4 cm with bulging bag of water. bedside ultrasound done. head in lower uterus on left side. spine up and hands as presenting part. anesthesia notified. will proceed with repeat c section. patient consented with video dish carrier. brifely discussed tubal ligation. patient had previously said was considering. too many questions and discussion needed to adequately residential youth counselor patient prior to c section. will discussed family planning options post : 02/23/19 11:55 Pt is doing well this am. She has ambulated and voided without difficulty. Has min lochia and is tolerating reg diet. She reports feeling dizzy and a headache when is getting up to walk. She is drinking fluids and we encouraged even more hydration. She has started pumping and baby is stable in the NICU on CPAP. 02/24/19 09:39 Pt seen and examined. She is pumping. Feeling well, but has some pain near her incision. Pain 2/10-relief with Motrin and Tylenol. Pt is OOB, dmitry regular diet , voiding, but notes some burning this am and had a BM x 1. Mild lochia. Denies any f/c/n/v/CP or SOB. Baby boy is in NICU on CPAP. 02/25/19 12:13 Pt is doing better today. She says her KOROMA has resolved. Her incisional pain is controlled with PO meds and she is ambulating, voiding and had a nml BM. She is using her abdominal binder which helps as well. She is tearful after discussing the NICU course with Dr. Sandhu and is having difficulty sleeping due to stress and the alarms for the baby. I offered and she would like to try Unisom. 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 02/26/19 10:32 patient is doing well overall. pain is well controlled. normal lochia. denies headache and changes in vision. ambulating. passing gas. denies headache and changes in vision. was able to get some sleep last night. discussed care with assistance of video customs inspector. will facilitate getting a letter for patients mother in law to try to get visa for her to come help. mood is stable. eating. voiding without difficulty. no concerns. discussed surgery and what happened. discussed that we did not do tubal ligation because of the urgency of the situation. patient understands. will discuss further at post visit. 02/26/19 10:34 - Delivery Providers Surgeon: Meri Rader Broom Man: Cleopatra Grant Anesthesiologist: Sajan Roldan - Delivery Number of Prior Sections: 2 Indications for Current Section: Other (Specify) (labor) Surgical Procedures: Unscheduled, Low Transverse, Vertical (t incision) Intra-op Complications: Other (Specify) ( entrapment necessitating t'ing of the uterus) EBL: [address] [address] Data RAVINDER: 04/30/19 Gestational Age: 31 week(s) and 0 day(s) [place] Delivery Date: 02/22/19 Delivery Time: 17:19 Sex of Infant: Male Weight (gm): 1765 g Score (1 Min): 4 Score (5 Min): 8 Discharge Information - Discharge Information Condition: Good Instruction/Follow Up: Two Weeks (incicion check), Four Weeks (post wellness mood check ), Six Weeks (post visit. )
--- NOTE | 2019-02-26 10:41 | OBGCSDC ---
General Delivery Information - General Info : 3 Para: 3 Abortions: 0 Type: Repeat L&D Analgesia/Anesthesia Type: Spinal Admission Date: 02/22/19 Labs: Patient ABO/Rh A POSITIVE 02/22/19 09:15 Hct 31.7 % (38.0-47.0) L 02/23/19 05:20 Group B Strep DNA NEGATIVE (NEGATIVE) 02/21/19 09:30 - Hospital Course Antepartum: 02/26/19 10:35 history of prior c section x 2 in [place]. Initiated care at [facility] in first trimester. unplanned . began having contractions at 30 3. arrived to l and d and was given steroids and magnesium sulfate. baby transverse spine up. continued mandeep and eventually had cervical change so proceeded with repeat c section. Intrapartum: 02/22/19 14:13 patient resting comfortably on magnesium. Magnesium is making her tired. no further bleeding. no loss of fluid. status reassuring. beside ultrasound - still variable presentation. reviewed case with MFM (Dr Fountain) . discussed nifedipine or indocin for 48 hours after magnesium to extend time after betamethasone. if not delivered by tuesday will have a growth ultrasound. with patient. will place mcduffie. questions answered. 02/22/19 16:32 patient breathing through contractions and wincing with pain. sve 4 cm with bulging bag of water. bedside ultrasound done. head in lower uterus on left side. spine up and hands as presenting part. anesthesia notified. will proceed with repeat c section. patient consented with video salvationist. brifely discussed tubal ligation. patient had previously said was considering. too many questions and discussion needed to adequately queen's counsel patient prior to c section. will discussed family planning options post : 02/23/19 11:55 Pt is doing well this am. She has ambulated and voided without difficulty. Has min lochia and is tolerating reg diet. She reports feeling dizzy and a headache when is getting up to walk. She is drinking fluids and we encouraged even more hydration. She has started pumping and baby is stable in the NICU on CPAP. 02/24/19 09:39 Pt seen and examined. She is pumping. Feeling well, but has some pain near her incision. Pain 2/10-relief with Motrin and Tylenol. Pt is OOB, dmitry regular diet , voiding, but notes some burning this am and had a BM x 1. Mild lochia. Denies any f/c/n/v/CP or SOB. Baby boy is in NICU on CPAP. 02/25/19 12:13 Pt is doing better today. She says her KOROMA has resolved. Her incisional pain is controlled with PO meds and she is ambulating, voiding and had a nml BM. She is using her abdominal binder which helps as well. She is tearful after discussing the NICU course with Dr. Sandhu and is having difficulty sleeping due to stress and the alarms for the baby. I offered and she would like to try [employer]. 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 02/26/19 10:32 patient is doing well overall. pain is well controlled. normal lochia. denies headache and changes in vision. ambulating. passing gas. denies headache and changes in vision. was able to get some sleep last night. discussed care with assistance of video front end developer designer. will facilitate getting a letter for patients mother in law to try to get visa for her to come help. mood is stable. eating. voiding without difficulty. no concerns. discussed surgery and what happened. discussed that we did not do tubal ligation because of the urgency of the situation. patient understands. will discuss further at post visit. 02/26/19 10:34 - Delivery Providers Surgeon: Meri Rader Watch Assembly Inspector: Cleopatra Grant Anesthesiologist: Sajan Roldan - Delivery Number of Prior Sections: 2 Indications for Current Section: Other (Specify) (labor) Surgical Procedures: Unscheduled, Low Transverse, Vertical (t incision) Intra-op Complications: Other (Specify) ( entrapment necessitating t'ing of the uterus) EBL: [address] [place] Data RAVINDER: 04/30/19 Gestational Age: 31 week(s) and 0 day(s) [place] Delivery Date: 02/22/19 Delivery Time: 17:19 Sex of Infant: Male Weight (gm): 1765 g Score (1 Min): 4 Score (5 Min): 8 Discharge Information - Discharge Information Prescriptions: oxyCODONE IR [Oxycodone Ir (*)] 5 - 10 mg PO Q4HRS PRN #10 tab PRN Reason: Pain, Severe Able To Take Po Condition: Good Instruction/Follow Up: Two Weeks (incicion check), Four Weeks (post wellness mood check ), Six Weeks (post visit. )
[2019-02-26] MEDS: FERRO-SEQUELS 65 MG TAB.ER PO SCH (11:07)
--- NOTE | 2019-02-26 12:41 | ASMTCMCOM ---
CM Note CM Note Notes: Met with Pt who is discharging today. Using the Language interpretation service line via I pad, this CM explained the resources (in my notes 02/25) available to her. [facility] correspondence representative Rosalee Alicia will meet with Pt in the morning at 9am. Pt agreed to be here. Rosalee will review the resources provided to the Pt by this CM and help the Pt fill out the application needed for the services. Rosalee called with the appointment time set for 9 am tomorrow. PLAN: Pt is discharging home with family but will spent time here visiting her Baby. Date Signed: 02/26/2019 12:40 PM Electronically Signed By:Cleopatra Avila
== END 2019-02-26 12:00 | disposition home or self-care (01) | DRG 540 ==
LOC: FLD 08:36 → OBSVTOIN 09:07 → FOB 20:48
PROVIDERS: ADMIT Obstetrics & Gynecology; ATTEND Obstetrics & Gynecology
PROC: 10D00Z1 Extraction of Products of Conception, Low, Open Approach (ICD-10-PCS; principal; 2019-02-22)
DX: O60.14X0 Preterm labor third trimester with preterm delivery third trimester, not applicable or unspecified (principal); O32.2XX0 Maternal care for transverse and oblique lie, not applicable or unspecified; O66.3 Obstructed labor due to other abnormalities of fetus; Z37.0 Single live birth; O34.219 Maternal care for unspecified type scar from previous cesarean delivery; O46.93 Antepartum hemorrhage, unspecified, third trimester; Z3A.30 30 weeks gestation of pregnancy
CPT/HCPCS: J0610; J0690; J0702; J1885; J2274; J2370; J2405; J2590; J3475